=== PATIENT | male | born 1940 | race American Indian/Alaskan Native ===

== ENCOUNTER 2018-08-08 12:22 | Inpatient (IN) | payer MEDICARE ==
[2018-08-08] MEDS ORDERED: PROVENTIL IH PRN (12:30)
[2018-08-08] MEDS ORDERED: SODIUM CHLORIDE FLUSH SYRINGE 10 ML IV PRN (12:30)
[2018-08-08] MEDS ORDERED: ZOFRAN IV PRN (12:30)
[2018-08-08] MEDS ORDERED: MORPHINE IV PRN (12:30)
--- NOTE | 2018-08-08 12:33 | History and Physical Report ---
History of Present Illness Chief complaint: My doctor told me to come in History of present illness: 78 YO Male with BPH, HLD was seen and evaluated by his PCP, Dr. Curry, and was found to have painless jaundice. Pt admitted directly at the request of Patricio Chan. Pt seen and evaluated upon arrival to his room. Pt denies fever, chills, CP, palpitations, NVD, Unintentional weight loss, night sweats, howard pain, skin rash, productive cough, or recent ill contacts. Pt acknowledges darkening of his skin, as well as being told by his that his eyes were "turning yellow" over the past 2 months. Pt also acknowledges dark urine, as well as change in the color of his stool. No reported nursing events. Past History Past Medical History: hyperlipidemia, other (BPH) Past Surgical History: No surgical history, Other (reviewed) Social history: , lives with family Family history: no significant family history Medications and Allergies Allergies Allergy/AdvReac Type Severity Reaction Status Date / Time No Known Allergies Allergy Verified 08/08/18 12:55 Home Medications Medication Instructions Recorded Confirmed Last Taken Type Oxybutynin [Ditropan] 5 mg PO DAILY 10/05/13 08/08/18 Unknown History Pravastatin Sodium 40 mg PO BID 10/05/13 08/08/18 10/04/13 History Sildenafil Citrate [Viagra] 100 mg PO DAILY 10/05/13 08/08/18 Unknown History Timolol Maleate 1 each OU DAILY 10/05/13 08/08/18 10/05/13 History Travoprost [Travatan Z] 1 drops OU QHS 10/05/13 08/08/18 10/04/13 History Tamsulosin HCl [Flomax] 0.4 mg PO DAILY 08/08/18 08/08/18 Unknown History Active Meds: Active Medications Albuterol (Proventil) 2.5 mg IH Q4HRT PRN PRN Reason: Shortness Of Breath Morphine Sulfate (Morphine) 2 mg IV Q4H PRN PRN Reason: Pain, Moderate (4-6) Ondansetron HCl (Zofran) 4 mg IV Q8H PRN PRN Reason: Nausea And Vomiting Sodium Chloride (Sodium Chloride Flush Syringe 10 Ml) 10 ml IV BID DESTINEE Sodium Chloride (Sodium Chloride Flush Syringe 10 Ml) 10 ml IV PRN PRN PRN Reason: LINE FLUSH Review of Systems Constitutional: no weight loss, no weight gain, no fever, no chills Ears, nose, mouth and throat: no ear pain, no ear discharge, no tinnitis, no decreased hearing, no nose pain Cardiovascular: no chest pain, no orthopnea, no palpitations, no rapid/irregular heart beat, no edema Respiratory: no cough, no cough with sputum, no excessive sputum, no hemoptysis Gastrointestinal: no abdominal pain, no nausea, no vomiting, no constipation, no change in bowel habits Genitourinary Male: other (dark urine), no dysuria, no discharge, no urinary frequency, no urinary hesitancy Rectal: no pain, no incontinence, no bleeding Musculoskeletal: no neck stiffness, no neck pain, no shooting arm pain, no arm numbness/tingling, no low back pain, no leg numbness/tingling Integumentary: no rash, no pruritis, no redness, no sores Neurological: no transient paralysis, no paralysis, no weakness, no parathesias Psychiatric: no anxiety, no memory loss, no change in sleep habits, no sleep disturbances, no insomnia, no hypersomnia, no change in appetite Endocrine: no cold intolerance, no heat intolerance, no excessive thirst, no polydipsia, no polyuria, no nocturia, no weight change Hematologic/Lymphatic: no easy bruising, no easy bleeding Allergic/Immunologic: no allergic rhinitis, no wheezing, no persistent infections, no anaphylaxis Exam - Constitutional General appearance: Present: no acute distress - EENT Eyes: Present: scleral icterus ENT: hearing intact, clear oral mucosa - Neck Neck: Present: supple, normal ROM - Respiratory Respiratory effort: normal Respiratory: bilateral: CTA - Cardiovascular Heart Sounds: Present: S1 & S2. Absent: rub, click - Extremities Extremities: pulses symmetrical, No edema Peripheral Pulses: within normal limits - Abdominal General gastrointestinal: Present: soft, non-tender, non-distended, normal bowel sounds Male genitourinary: Present: normal - Integumentary Integumentary: Present: clear, warm, dry - Musculoskeletal Musculoskeletal: gait normal, strength equal bilaterally - Psychiatric Psychiatric: appropriate mood/affect, intact judgment & insight - Neurologic Neurologic: CNII-XII intact, moves all extremities Results - Labs CBC & Chem 7: 08/08/18 13:25 08/08/18 13:25 Assessment and Plan - Patient Problems (1) Hepatitis Current Visit: Yes Status: Acute Plan to address problem: Hepatitis panel, hold statin therapy, avoid hepatotoxic agents, LFT, CBC, CMP, CT Abdomen/Pelvis, Ultrasound liver, coagulation profile, GI consulted (2) Elevated LFTs Current Visit: Yes Status: Acute Plan to address problem: GI consulted, Liver ultrasound, (3) HLD (hyperlipidemia) Current Visit: Yes Status: Acute Qualifiers: Hyperlipidemia type: mixed hyperlipidemia Qualified Code(s): E78.2 - Mixed hyperlipidemia Plan to address problem: Hold statin therapy, low cholesterol diet (4) DVT prophylaxis Current Visit: Yes Status: Acute Plan to address problem: SCD to BLE while in bed
[2018-08-08 13:39] LABS: Mean Corpuscular HGB Conc 35 % (32-34); Mean Corpuscular Volume 92 fl (84-94); Platelet Count 281 K/mm3 (140-440); Red Blood Count 4.01 M/mm3 (3.65-5.03); Red Cell Distribution Width 16.5 % (13.2-15.2)
[2018-08-08 13:54] LABS: INR 1.09 (0.87-1.13)
[2018-08-08 14:05] LABS: Alanine Aminotransferase 186 units/L (7-56); Albumin 3.2 g/dL (3.9-5); BUN/Creatinine Ratio 25; Blood Urea Nitrogen 15 mg/dL (9-20); Calcium 9.4 mg/dL (8.4-10.2); Hemolysis Index 5; LDL Cholesterol,Direct 65 mg/dL (50-130)
[2018-08-08 14:49] LABS: Chol/HDL Ratio 24.42 %; HDL Cholesterol 14 mg/dL (40-59)
[2018-08-08 15:46] LABS: Basophils % (Manual) 0 % (0.0-1.8); Total Cells Counted 100
[2018-08-08 15:48] LABS: Anisocytosis 1+; Target Cells 2+
[2018-08-08] MEDS: LATANOPROST 0.005% OU SCH (18:00)
[2018-08-08 18:04] LABS: Hepatitis B Surface Antigen Non-Reactive (Negative); Hepatitis C Virus Antibody Non-Reactive (NonReactive)
[2018-08-08 18:23] LABS: Bilirubin,Direct 17.6 mg/dL (0-0.2)
--- NOTE | 2018-08-08 18:45 | Cat Scan Report ---
PROCEDURE: CT ABDOMEN PELVIS W CON TECHNIQUE: Computerized axial tomography of the abdomen and pelvis was performed after the IV inject ion of iodinated nonionic contrast. HISTORY: ab pain COMPARISONS: None . FINDINGS: Lower Lung garcia: Minimal dependent atelectasis. Lung bases otherwise are clear. Upper Abdomen: There are multiple low-density nodules scattered throughout the right and left lobes of the liver measuring up to 4.4 cm consistent with multiple hepatic cysts. The gallbladder is disten ded. The intrahepatic ducts are significantly distended, left lobe more than the right lobe. Follow-u p biliary ultrasound recommended. The adrenal glands, the pancreas and spleen are unremarkable. Kidneys, Ureters and Urinary bladder: No abnormalities are seen. Retroperitoneum: Atherosclerotic changes are seen in the abdominal aorta. No evidence of abdominal a ortic aneurysm. The ascending thoracic aorta is partially visualized on this exam and appears mildly dilated measuring 4.6 x 4.4 cm, aneurysmal dilatation. No dissection is seen. The entire thoracic aor ta is not included on this exam. Nonspecific subcentimeter lymph nodes are seen in the retroperitoneum. No pathologically enlarged ly mph nodes are identified. Bowel: Mild diverticulosis seen left-sided colon without evidence of diverticulitis. Normal-appearin g appendix visualized right lower quadrant. There is mild wall thickening seen right side of the colo n as well as decreased density in the submucosal layer. This could be related to body habitus and t. I cannot exclude a nonspecific colitis on the right. Minimal left inguinal hernia containing adipo se tissue visualized. No herniated loops of bowel are seen. Reproductive organs: There is nonspecific diffuse prostate enlargement. Other: No acute bone abnormalities are seen IMPRESSION: There is dilatation of the gallbladder as well as the intrahepatic ducts as described. Biliary ultras ound is recommended for further evaluation. Multiple hepatic cysts are also suspected. Mild wall prominence right side of the colon as well as mild prominence of the submucosal layer as de scribed. This could be an artifact and body habitus and diet. I cannot exclude a nonspecific colitis on the right. Minimal diverticulosis left side of the colon. Mild aneurysmal dilatation ascending thoracic aorta partially visualized as described. Nonspecific diffuse prostate enlargement. This document is electronically signed by Mateusz Dietrich MD., August 08 2018 06:43:36 PM ET
[2018-08-08] MEDS ORDERED: TRAVOPROST OU SCH (22:00)
[2018-08-08] MEDS: SODIUM CHLORIDE FLUSH SYRINGE 10 ML IV SCH (23:29)
--- NOTE | 2018-08-09 07:53 | Progress Note ---
Assessment and Plan Assessment and plan: 78-year-old man with a history of hyperlipidemia, BPH, thyroid nodules who presents to the hospital with painless jaundice. He was directly admitted at the request of Dr Curry. 2013; patient had FNA of thyroid nodules, which yielded focal cells. Labs at time of admission reveal total bilirubin of 27, direct bilirubin of 17, mildly elevated AST and ALT, alkaline phosphatase of 831. Coags are normal, hepatitis serologies negative X CT abdomen and pelvis; there is dilatation of the gallbladder as well as entire hepatic ducts, multiple hepatic cysts are suspected mild wall prominence along the right side of the colon as well as mild prominence of submucosal layer is described Diagnoses Jaundice Transaminitis Hyperlipidemia BPH. Plan Suspect malignancy, obtain abdominal ultrasound. GI consult appreciated, patient is going for ERCP today Resume home medications DVT prophylaxis is Lovenox History Interval history: Continues to have jaundice of skin and eyes Review of systems Constitutional: No fevers, no malaise, no joint pains CVS: No chest pain, no orthopnea, no dyspnea on exertion, no pedal edema GI: No abdominal pain, no diarrhea, no vomiting, no constipation Respiratory: No shortness of breath, no wheezing, no coughing Hospitalist Physical - Physical exam Narrative exam: General. no distress, nontoxic HEENT: Scleral icterus, Moist mucous membranes, extraocular muscles intact, no lymphadenopathy Neck: supple Cardiac: S1-S2 heard Lungs: clear to auscultation bilaterally Abdomen: soft , nontender, nondistended, bowel sounds positive Extremities: no edema clubbing or cyanosis Skin: no rash or lesions, skin is jaundiced Neurologic: no gross focal deficits Psych: calm, and cooperative - Constitutional Vitals: Temp Pulse Resp BP Pulse Ox 99.0 F 66 16 130/71 97 08/09/18 01:40 08/09/18 01:40 08/09/18 01:40 08/09/18 01:40 08/09/18 01:40 General appearance: Present: no acute distress Results - Labs CBC & Chem 7: 08/08/18 13:25 08/08/18 13:25 Labs: Laboratory Last Values WBC 4.9 K/mm3 (4.5-11.0) 08/08/18 13:25 RBC 4.01 M/mm3 (3.65-5.03) 08/08/18 13:25 Hgb 13.0 gm/dl (11.8-15.2) 08/08/18 13:25 Hct 37.0 % (35.5-45.6) 08/08/18 13:25 MCV 92 fl (84-94) 08/08/18 13:25 MCH 33 pg (28-32) H 08/08/18 13:25 MCHC 35 % (32-34) H 08/08/18 13:25 RDW 16.5 % (13.2-15.2) H 08/08/18 13:25 Plt Count 281 K/mm3 (140-440) 08/08/18 13:25 Add Manual Diff Complete 08/08/18 13:25 Total Counted 100 08/08/18 13:25 Seg Neuts % (Manual) 62.0 % (40.0-70.0) 08/08/18 13:25 Band Neutrophils % 0 % 08/08/18 13:25 Lymphocytes % (Manual) 26.0 % (13.4-35.0) 08/08/18 13:25 Reactive Lymphs % (Man) 0 % 08/08/18 13:25 Monocytes % (Manual) 9.0 % (0.0-7.3) H 08/08/18 13:25 Eosinophils % (Manual) 3.0 % (0.0-4.3) 08/08/18 13:25 Basophils % (Manual) 0 % (0.0-1.8) 08/08/18 13:25 Metamyelocytes % 0 % 08/08/18 13:25 Myelocytes % 0 % 08/08/18 13:25 Promyelocytes % 0 % 08/08/18 13:25 Blast Cells % 0 % 08/08/18 13:25 Nucleated RBC % Not Reportable 08/08/18 13:25 Seg Neutrophils # Man 3.0 K/mm3 (1.8-7.7) 08/08/18 13:25 Band Neutrophils # 0.0 K/mm3 08/08/18 13:25 Lymphocytes # (Manual) 1.3 K/mm3 (1.2-5.4) 08/08/18 13:25 Abs React Lymphs (Man) 0.0 K/mm3 08/08/18 13:25 Monocytes # (Manual) 0.4 K/mm3 (0.0-0.8) 08/08/18 13:25 Eosinophils # (Manual) 0.1 K/mm3 (0.0-0.4) 08/08/18 13:25 Basophils # (Manual) 0.0 K/mm3 (0.0-0.1) 08/08/18 13:25 Metamyelocytes # 0.0 K/mm3 08/08/18 13:25 Myelocytes # 0.0 K/mm3 08/08/18 13:25 Promyelocytes # 0.0 K/mm3 08/08/18 13:25 Blast Cells # 0.0 K/mm3 08/08/18 13:25 WBC Morphology Not Reportable 08/08/18 13:25 Hypersegmented Neuts Not Reportable 08/08/18 13:25 Hyposegmented Neuts Not Reportable 08/08/18 13:25 Hypogranular Neuts Not Reportable 08/08/18 13:25 Smudge Cells Not Reportable 08/08/18 13:25 Toxic Granulation Not Reportable 08/08/18 13:25 Toxic Vacuolation Not Reportable 08/08/18 13:25 Dohle Bodies Not Reportable 08/08/18 13:25 Pelger-Huet Anomaly Not Reportable 08/08/18 13:25 Katelyn Rods Not Reportable 08/08/18 13:25 Platelet Estimate Appears normal 08/08/18 13:25 Clumped Platelets Not Reportable 08/08/18 13:25 Plt Clumps, EDTA Not Reportable 08/08/18 13:25 Large Platelets Not Reportable 08/08/18 13:25 Giant Platelets Not Reportable 08/08/18 13:25 Platelet Satelliting Not Reportable 08/08/18 13:25 Plt Morphology Comment Not Reportable 08/08/18 13:25 RBC Morphology Not Reportable 08/08/18 13:25 Dimorphic RBCs Not Reportable 08/08/18 13:25 Polychromasia Not Reportable 08/08/18 13:25 Hypochromasia Not Reportable 08/08/18 13:25 Poikilocytosis Not Reportable 08/08/18 13:25 Anisocytosis 1+ 08/08/18 13:25 Microcytosis Not Reportable 08/08/18 13:25 Macrocytosis Not Reportable 08/08/18 13:25 Spherocytes Not Reportable 08/08/18 13:25 Pappenheimer Bodies Not Reportable 08/08/18 13:25 Sickle Cells Not Reportable 08/08/18 13:25 Target Cells 2+ 08/08/18 13:25 Tear Drop Cells Not Reportable 08/08/18 13:25 Ovalocytes Not Reportable 08/08/18 13:25 Helmet Cells Not Reportable 08/08/18 13:25 Muniz-Cleora Bodies Not Reportable 08/08/18 13:25 Paint Bank Rings Not Reportable 08/08/18 13:25 Daria Cells Not Reportable 08/08/18 13:25 Bite Cells Not Reportable 08/08/18 13:25 Crenated Cell Not Reportable 08/08/18 13:25 Elliptocytes Not Reportable 08/08/18 13:25 Acanthocytes (Spur) Not Reportable 08/08/18 13:25 Rouleaux Not Reportable 08/08/18 13:25 Hemoglobin C Crystals Not Reportable 08/08/18 13:25 Schistocytes Not Reportable 08/08/18 13:25 Malaria parasites Not Reportable 08/08/18 13:25 Josef Bodies Not Reportable 08/08/18 13:25 Hem Pathologist Commnt No 08/08/18 13:25 PT 14.8 Sec. (12.2-14.9) 08/08/18 13:25 INR 1.09 (0.87-1.13) 08/08/18 13:25 Sodium 140 mmol/L (137-145) 08/08/18 13:25 Potassium 3.6 mmol/L (3.6-5.0) 08/08/18 13:25 Chloride 101.5 mmol/L (98-107) 08/08/18 13:25 Carbon Dioxide 24 mmol/L (22-30) 08/08/18 13:25 Anion Gap 18 mmol/L 08/08/18 13:25 BUN 15 mg/dL (9-20) 08/08/18 13:25 Creatinine 0.6 mg/dL (0.8-1.5) L 08/08/18 13:25 Estimated GFR > 60 ml/min 08/08/18 13:25 BUN/Creatinine Ratio 25 % 08/08/18 13:25 Glucose 95 mg/dL (75-100) 08/08/18 13:25 Calcium 9.4 mg/dL (8.4-10.2) 08/08/18 13:25 Total Bilirubin 27.60 mg/dL (0.1-1.2) H 08/08/18 16:35 Direct Bilirubin 17.6 mg/dL (0-0.2) H 08/08/18 16:35 Indirect Bilirubin 10.0 mg/dL 08/08/18 16:35 AST 161 units/L (5-40) H 08/08/18 13:25 ALT 186 units/L (7-56) H 08/08/18 13:25 Alkaline Phosphatase 831 units/L (35-129) H 08/08/18 13:25 Total Protein 6.8 g/dL (6.3-8.2) 08/08/18 13:25 Albumin 3.2 g/dL (3.9-5) L 08/08/18 13:25 Albumin/Globulin Ratio 0.9 % 08/08/18 13:25 Triglycerides 257 mg/dL (2-149) H 08/08/18 13:25 Cholesterol 342 mg/dL (50-199) H 08/08/18 13:25 LDL Cholesterol Direct 65 mg/dL (50-130) 08/08/18 13:25 HDL Cholesterol 14 mg/dL (40-59) L 08/08/18 13:25 Cholesterol/HDL Ratio 24.42 % 08/08/18 13:25 Lipase 40 units/L (13-60) 08/08/18 16:35 Hepatitis A IgM Ab Non-reactive (NonReactive) 08/08/18 16:35 Hep Bs Antigen Non-reactive (Negative) 08/08/18 16:35 Hep B Core IgM Ab Non-reactive (NonReactive) 08/08/18 16:35 Hepatitis C Antibody Non-reactive (NonReactive) 08/08/18 16:35 Active Medications - Current Medications Current Medications: Generic Name Dose Route Start Last Admin Trade Name Freq PRN Reason Stop Dose Admin Albuterol 2.5 mg 08/08/18 12:30 Proventil IH Q4HRT PRN Shortness Of Breath Latanoprost 1 drops 08/08/18 18:00 Latanoprost 0.005% OU QPM DESTINEE Morphine Sulfate 2 mg 08/08/18 12:30 Morphine IV Q4H PRN Pain, Moderate (4-6) Ondansetron HCl 4 mg 08/08/18 12:30 Zofran IV Q8H PRN Nausea And Vomiting Oxybutynin Chloride 5 mg 08/09/18 10:00 Ditropan PO DAILY DESTINEE Sodium Chloride 10 ml 08/08/18 22:00 08/08/18 23:29 Sodium Chloride Flush Syringe 10 Ml IV 10 ml BID DESTINEE Administration Sodium Chloride 10 ml 08/08/18 12:30 Sodium Chloride Flush Syringe 10 Ml IV PRN PRN LINE FLUSH Timolol Maleate 1 drops 08/09/18 10:00 Timoptic OU DAILY DESTINEE
[2018-08-09] MEDS: TIMOPTIC OU SCH (09:20)
[2018-08-09] MEDS: SODIUM CHLORIDE FLUSH SYRINGE 10 ML IV SCH ×2 (09:22→22:45)
[2018-08-09] MEDS: DITROPAN PO SCH (09:22)
[2018-08-09] MEDS: FLOMAX PO SCH (09:22)
--- NOTE | 2018-08-09 09:49 | Gastroenterology Consultation ---
History of Present Illness - Reason for Consult Consult date: 08/09/18 Jaundice Requesting physician: TOM ELLIOTT - History of Present Illness The patient is a 78 yo male with no past GI history. He was admitted with 2-3 week onset painless jaundice. A CT scan showed significant ductal dilation, but no obvious mass in the HOP (nor pancreatic ductal dilation). His INR and platelets were normal, and he has no hx of liver disease or EtOH abuse; his acute hepatitis panel was negative. He has lost about 20 pounds in the past 6 months, though he says this was intentional. He has had itching the last 3-4 weeks. He denies a family hx of cancer other than prostate (dad), and he is not a smoker/former smoker. He has not started any new medications nor taken herbal supplements. He has had no abdominal pain or emesis. A colonoscopy showed small polyps 3 years ago (Samir) but he has never had an EGD. Past History Past Medical History: hyperlipidemia, other (BPH) Past Surgical History: No surgical history Social history: , lives with family. denies: smoking, alcohol abuse Family history: cancer (Prostate (Dad)) Medications and Allergies Allergies Allergy/AdvReac Type Severity Reaction Status Date / Time No Known Allergies Allergy Verified 08/08/18 12:55 Home Medications Medication Instructions Recorded Confirmed Last Taken Type Oxybutynin [Ditropan] 5 mg PO DAILY 10/05/13 08/08/18 Unknown History Pravastatin Sodium 40 mg PO BID 10/05/13 08/08/18 10/04/13 History Sildenafil Citrate [Viagra] 100 mg PO DAILY 10/05/13 08/08/18 Unknown History Timolol Maleate 1 each OU DAILY 10/05/13 08/08/18 10/05/13 History Travoprost [Travatan Z] 1 drops OU QHS 10/05/13 08/08/18 10/04/13 History Tamsulosin HCl [Flomax] 0.4 mg PO DAILY 08/08/18 08/08/18 Unknown History Active Meds: Active Medications Albuterol (Proventil) 2.5 mg IH Q4HRT PRN PRN Reason: Shortness Of Breath Enoxaparin Sodium (Lovenox) 40 mg SUB-Q QDAY@2200 [facility] Latanoprost (Latanoprost 0.005%) 1 drops OU QPM [facility] Morphine Sulfate (Morphine) 2 mg IV Q4H PRN PRN Reason: Pain, Moderate (4-6) Ondansetron HCl (Zofran) 4 mg IV Q8H PRN PRN Reason: Nausea And Vomiting Oxybutynin Chloride (Ditropan) 5 mg PO DAILY [facility] Last Admin: 08/09/18 09:22 Dose: 5 mg Documented by: Sodium Chloride (Sodium Chloride Flush Syringe 10 Ml) 10 ml IV BID [facility] Last Admin: 08/09/18 09:22 Dose: 10 ml Documented by: Sodium Chloride (Sodium Chloride Flush Syringe 10 Ml) 10 ml IV PRN PRN PRN Reason: LINE FLUSH Tamsulosin HCl (Flomax) 0.4 mg PO DAILY [facility] Last Admin: 08/09/18 09:22 Dose: 0.4 mg Documented by: Timolol Maleate (Timoptic) 1 drops OU DAILY [facility] Last Admin: 08/09/18 09:20 Dose: 1 drops Documented by: I HAVE REVIEWED AND RECONCILED MEDICATIONS Review of Systems - Review of Systems All systems: negative (as noted in the HPI) Exam - Constitutional Vital Signs: Temp Pulse Resp BP Pulse Ox 98.6 F 58 L 18 127/70 99 08/09/18 07:37 08/09/18 07:37 08/09/18 07:37 08/09/18 07:37 08/09/18 07:58 General appearance: no acute distress - EENT Eyes: PERRL, EOM intact, scleral icterus ENT: hearing intact, clear oral mucosa, no thrush - Neck Neck: supple, normal ROM - Respiratory Respiratory effort: normal Respiratory: bilateral: CTA - Cardiovascular Rhythm: regular Heart Sounds: Present: S1 & S2 Extremities: no ischemia, No edema - Gastrointestinal General gastrointestinal: Present: soft, non-tender, non-distended - Integumentary Integumentary: Present: clear, warm, dry - Neurologic Neurological: alert and oriented x3 - Labs CBC & Chem 7: 08/08/18 13:25 08/08/18 13:25 Lab Results: Laboratory Results - last 24 hr 08/08/18 08/08/18 08/08/18 13:25 13:25 13:25 WBC 4.9 RBC 4.01 Hgb 13.0 Hct 37.0 MCV 92 MCH 33 H MCHC 35 H RDW 16.5 H Plt Count 281 Add Manual Diff Complete Total Counted 100 Seg Neuts % (Manual) 62.0 Band Neutrophils % 0 Lymphocytes % (Manual) 26.0 Reactive Lymphs % (Man) 0 Monocytes % (Manual) 9.0 H Eosinophils % (Manual) 3.0 Basophils % (Manual) 0 Metamyelocytes % 0 Myelocytes % 0 Promyelocytes % 0 Blast Cells % 0 Nucleated RBC % Not Reportable Seg Neutrophils # Man 3.0 Band Neutrophils # 0.0 Lymphocytes # (Manual) 1.3 Abs React Lymphs (Man) 0.0 Monocytes # (Manual) 0.4 Eosinophils # (Manual) 0.1 Basophils # (Manual) 0.0 Metamyelocytes # 0.0 Myelocytes # 0.0 Promyelocytes # 0.0 Blast Cells # 0.0 WBC Morphology Not Reportable Hypersegmented Neuts Not Reportable Hyposegmented Neuts Not Reportable Hypogranular Neuts Not Reportable Smudge Cells Not Reportable Toxic Granulation Not Reportable Toxic Vacuolation Not Reportable Dohle Bodies Not Reportable Pelger-Huet Anomaly Not Reportable Katelyn Rods Not Reportable Platelet Estimate Appears normal Clumped Platelets Not Reportable Plt Clumps, EDTA Not Reportable Large Platelets Not Reportable Giant Platelets Not Reportable Platelet Satelliting Not Reportable Plt Morphology Comment Not Reportable RBC Morphology Not Reportable Dimorphic RBCs Not Reportable Polychromasia Not Reportable Hypochromasia Not Reportable Poikilocytosis Not Reportable Anisocytosis 1+ Microcytosis Not Reportable Macrocytosis Not Reportable Spherocytes Not Reportable Pappenheimer Bodies Not Reportable Sickle Cells Not Reportable Target Cells 2+ Tear Drop Cells Not Reportable Ovalocytes Not Reportable Helmet Cells Not Reportable Muniz-[place]enton Bodies Not Reportable [place] Rings Not Reportable Daria Cells Not Reportable Bite Cells Not Reportable Crenated Cell Not Reportable Elliptocytes Not Reportable Acanthocytes (Spur) Not Reportable Rouleaux Not Reportable Hemoglobin C Crystals Not Reportable Schistocytes Not Reportable Malaria parasites Not Reportable Josef Bodies Not Reportable Hem Pathologist Commnt No PT 14.8 INR 1.09 Sodium 140 Potassium 3.6 Chloride 101.5 Carbon Dioxide 24 Anion Gap 18 BUN 15 Creatinine 0.6 L Estimated GFR > 60 BUN/Creatinine Ratio 25 Glucose 95 Calcium 9.4 Total Bilirubin 28.80 H Direct Bilirubin Indirect Bilirubin AST 161 H ALT 186 H Alkaline Phosphatase 831 H Total Protein 6.8 Albumin 3.2 L Albumin/Globulin Ratio 0.9 Triglycerides 257 H Cholesterol 342 H LDL Cholesterol Direct 65 HDL Cholesterol 14 L Cholesterol/HDL Ratio 24.42 Lipase Hepatitis A IgM Ab Hep Bs Antigen Hep B Core IgM Ab Hepatitis C Antibody 08/08/18 08/08/18 08/08/18 16:35 16:35 16:35 WBC RBC Hgb Hct MCV MCH MCHC RDW Plt Count Add Manual Diff Total Counted Seg Neuts % (Manual) Band Neutrophils % Lymphocytes % (Manual) Reactive Lymphs % (Man) Monocytes % (Manual) Eosinophils % (Manual) Basophils % (Manual) Metamyelocytes % Myelocytes % Promyelocytes % Blast Cells % Nucleated RBC % Seg Neutrophils # Man Band Neutrophils # Lymphocytes # (Manual) Abs React Lymphs (Man) Monocytes # (Manual) Eosinophils # (Manual) Basophils # (Manual) Metamyelocytes # Myelocytes # Promyelocytes # Blast Cells # WBC Morphology Hypersegmented Neuts Hyposegmented Neuts Hypogranular Neuts Smudge Cells Toxic Granulation Toxic Vacuolation Dohle Bodies Pelger-Huet Anomaly Katelyn Rods Platelet Estimate Clumped Platelets Plt Clumps, EDTA Large Platelets Giant Platelets Platelet Satelliting Plt Morphology Comment RBC Morphology Dimorphic RBCs Polychromasia Hypochromasia Poikilocytosis Anisocytosis Microcytosis Macrocytosis Spherocytes Pappenheimer Bodies Sickle Cells Target Cells Tear Drop Cells Ovalocytes Helmet Cells Muniz-Penton Bodies [place] Rings [place] Cells Bite Cells Crenated Cell Elliptocytes Acanthocytes (Spur) Rouleaux Hemoglobin C Crystals Schistocytes Malaria parasites Josef Bodies Hem Pathologist Commnt PT INR Sodium Potassium Chloride Carbon Dioxide Anion Gap BUN Creatinine Estimated GFR BUN/Creatinine Ratio Glucose Calcium Total Bilirubin 27.60 H Direct Bilirubin 17.6 H Indirect Bilirubin 10.0 AST ALT Alkaline Phosphatase Total Protein Albumin Albumin/Globulin Ratio Triglycerides Cholesterol LDL Cholesterol Direct HDL Cholesterol Cholesterol/HDL Ratio Lipase 40 Hepatitis A IgM Ab Non-reactive Hep Bs Antigen Non-reactive Hep B Core IgM Ab Non-reactive Hepatitis C Antibody Non-reactive Assessment and Plan - Patient Problems (1) Jaundice Current Visit: Yes Status: Acute Plan to address problem: - Given painless jaundice and markedly dilated ducts, along with patient age, very high likelihood of cancer (versus infx, autoimmune, or stone-related cause). - I doubt medication related since no acute change in meds (but will decrease pravastatin to QD from BID). - Will cancel MRI and proceed directly to ERCP with brushing/stent; if no significant finding, I think the next logical step would be EUS given abrupt duct change in size at level of HOP. - Will keep NPO and plan ERCP later today pending OR availability. (2) Abnormal computerized tomography of biliary tract Current Visit: Yes Status: Acute
[2018-08-09] MEDS ORDERED: PRAVACHOL PO SCH (10:00)
--- NOTE | 2018-08-09 16:06 | Anesthesia Consultation ---
Anesthesia Consult and Med Hx Date of service: 08/09/18 - Airway Anesthetic Teeth Evaluation: Good ROM Head & Neck: Adequate Mental/Hyoid Distance: Adequate Mallampati Class: Class III Intubation Access Assessment: Possibly Difficult - Pulmonary Exam CTA: Yes - Cardiac Exam Cardiac Exam: RRR - Pre-Operative Health Status ASA Pre-Surgery Classification: ASA2 Proposed Anesthetic Plan: MAC - Pulmonary Hx Smoking: No - Cardiovascular System Hx Hypertension: No Hx Heart Attack/AMI: No Hx Percutaneous Transluminal Coronary Angioplasty (PTCA): No Hx Cardia Arrhythmia: No - Central Nervous System Hx Seizures: No CVA: No Hx Psychiatric Problems: No - Gastrointestinal Hx Gastroesophageal Reflux Disease: No - Endocrine Hx Renal Disease: No Hx Liver Disease: Yes (transaminitis, painless jaundice on admission) Hx Insulin Dependent Diabetes: No Hx Non-Insulin Dependent Diabetes: No Hx Thyroid Disease: No - Hematic Hx Anemia: No - Other Systems Hx Obesity: No - Additional Comments Anesthesia Medical History Comments: No hx anesthetic complications.
[2018-08-09] MEDS ORDERED: WATER FOR IRRIG STERILE IR ONE (16:13)
[2018-08-09] MEDS ORDERED: NACL 0.9% 1000 ML 1,000 ML ONE (16:14)
[2018-08-09] MEDS ORDERED: XYLOCAINE MPF 2% ONE (16:44)
[2018-08-09] MEDS ORDERED: VERSED ONE (16:44)
[2018-08-09] MEDS ORDERED: DIPRIVAN 10 MG/ML IV ONE ×3 (16:45→18:10)
[2018-08-09] MEDS ORDERED: NACL 0.9% 100 ML ONE (17:05)
[2018-08-09] MEDS ORDERED: GLUCAGEN ONE (17:05)
[2018-08-09] MEDS ORDERED: GLUCAGEN IV ONE (17:55)
[2018-08-09] MEDS: LATANOPROST 0.005% OU SCH (18:00)
--- NOTE | 2018-08-09 18:50 | Post Operative Note ---
Pre-op diagnosis: Biliary Obstruction Post-op diagnosis: same Findings: 1. Normal Ampulla 2. PD cannulated with 0.025guidewire; appeared normal - precut sphincterotomy made 3. Unable to cannulate CBD, and minimal bile seen in duodenum Procedure: ERCP with sphincterotomy Anesthesia: MAC Surgeon: COLTEN OATES Estimated blood loss: minimal Pathology: none Specimen disposition: other (N/A) Condition: stable Disposition: floor (Recs: 1. Will discuss with biliary surgery at [facility]; given large hepatic cysts (in L lobe) that may communicate with ducts, and dilation to pancreas head, both CA and choledochoceles are in differential. I still favor CA as most likely. Ampullary stenosis/autoimmune would be even less likely. Patient will need PTC with improved imaging, and possible surgical management.)
--- NOTE | 2018-08-09 18:56 | Anesthesia Day of Surgery ---
Anesthesia Day of Surgery - Day of Surgery Patient Examined: Yes Patient H&P Reviewed: Yes Patient is NPO: Yes
--- NOTE | 2018-08-09 19:24 | Operative Report ---
PROCEDURE PERFORMED: Endoscopic retrograde cholangiopancreatography. PREOPERATIVE DIAGNOSIS: Biliary obstruction. POSTOPERATIVE DIAGNOSIS: Biliary obstruction. ENDOSCOPIST: Jeremy Solares MD INSTRUMENT: [place] video endoscope. MEDICATIONS: MAC anesthesia by Anesthesia Services. COMPLICATIONS: No apparent complications. ESTIMATED BLOOD LOSS: Minimal. SPECIMENS: None. IMPLANTS: None. ASSISTANTS: None. CONDITION AT COMPLETION: Stable. TECHNIQUE: The patient was informed of the risks and benefits of the procedure. He signed the informed consent to proceed. He was placed in the left lateral decubitus position. The above sedative medications were given. His vital signs remained stable throughout the procedure. The instrument was advanced from the mouth to the second portion of the duodenum under direct visualization. At that point, the ampulla was visualized, it was normal in shape and size. The pancreatic duct was cannulated with relative ease using a 0.035 guidewire despite repositioning, we were unable to cannulate the common bile duct. A precut sphincterotomy was made of a medium size. We then used a 0.025 and a 0.035 guidewire to attempt cannulation without success. It should be noted there was minimal bile seen in the duodenum, indicative of probable high-grade stricture. At that point, the procedure was terminated. FINDINGS: 1. Normal appearing ampulla. 2. The pancreatic duct was cannulated using a 0.035 and 0.025 guidewire; it appeared normal on injection of contrast. Subsequently, a precut sphincterotomy was made. 3. We were unable to cannulate the common bile duct and there was minimal bile in the duodenum, indicative of likely high-grade obstruction. RECOMMENDATIONS: 1. I will discuss the case with biliary surgery at [facility]. Given his large hepatic cyst in the left lobe that may communicate with the ducts and dilation of the common bile duct of the pancreatic head, both cancer as well as choledochocele or atypical choledochocele would be in the differential. I still favor cancer is most likely diagnosis, but ampullary stenosis and autoimmune disease would be possible, but less likely. 2. The patient will need a percutaneous transhepatic cholangiogram with bile duct brushing and improved imaging, and possible surgical management. JOB# [id number] E/NTS
--- NOTE | 2018-08-09 19:26 | Post Anesthesia Evaluation ---
- Post Anesthesia Evaluation Patient Participated: Yes Airway Patent: Yes Stable Respiratory Function: Yes Nausea/Vomiting: No Temp > 96.8F: Yes Pain Manageable: Yes Adequeate Hydration: Yes Anesthesia Complications: No Other Comments: While in recovery, patient developed irreugular rhythm with apparent RBBB on telemetry. 12-lead EKG shows sinus rhythm with multiforme QRS complexes. Patient otherwise asymptomatic and HD stable with BP at baseline. Will transfer back to floor at this time. Findings discussed with covering hospitalist who will order additional lab studies.
[2018-08-09] MEDS: LEVAQUIN 750MG/150ML 750 MG/150 ML BAG IV SCH (21:08)
[2018-08-09] MEDS ORDERED: LOVENOX SUB-Q SCH (22:00)
[2018-08-10] MEDS: LEVAQUIN 750MG/150ML 750 MG/150 ML BAG IV SCH (09:19)
[2018-08-10] MEDS: FLOMAX PO SCH (09:22)
[2018-08-10] MEDS: DITROPAN PO SCH (09:22)
[2018-08-10] MEDS: SODIUM CHLORIDE FLUSH SYRINGE 10 ML IV SCH (09:24)
[2018-08-10] MEDS: TIMOPTIC OU SCH (09:24)
--- NOTE | 2018-08-10 09:35 | Discharge Summary ---
Providers - Providers Date of Admission: 08/08/18 12:57 Attending physician: TOM ELLIOTT MD 08/08/18 15:16 Consult to Physician [CONS] Routine Comment: NIKKI Consulting Provider: DIEGO WOODSON Physician Instructions: CONSULT WAS CALLED TO /TONY Reason For Exam: liver failure Primary care physician: SRIRAM ROBLEDO Hospitalization Hospital course: 78-year-old man with a history of hyperlipidemia, BPH, thyroid nodules who presents to the hospital with painless jaundice. He was directly admitted at the request of Dr Robledo. 2013; patient had FNA of thyroid nodules, which yielded focal cells. Labs at time of admission reveal total bilirubin of 27, direct bilirubin of 17, mildly elevated AST and ALT, alkaline phosphatase of 831. Coags are normal, h epatitis serologies negative X CT abdomen and pelvis; there is dilatation of the gallbladder as well as entire hepatic ducts, multiple hepatic cysts are suspected mild wall prominence along the right side of the colon as well as mild prominence of submucosal layer is described Diagnoses Jaundice Transaminitis Hyperlipidemia BPH. Plan Suspect malignancy sp ERCP, on 08/09, Unable to cannulate CBD, and minimal bile seen in duodenum, is being transferred to [facility] for PTC continued his home medications DVT prophylaxis is Lovenox Disposition: [id number]/TX-[id number] SHRT-TRM GEN HOSP IP Time spent for discharge: 33 mins Core Measure Documentation - Palliative Care Palliative Care/ Comfort Measures: Not Applicable - Core Measures Any of the following diagnoses?: none Exam - Constitutional Vitals: Temp Pulse Resp BP Pulse Ox 98.1 F 70 18 133/81 100 08/10/18 02:27 08/10/18 02:27 08/10/18 02:27 08/10/18 02:27 08/10/18 02:27 General appearance: Present: no acute distress, well-nourished - EENT Eyes: Present: PERRL, scleral icterus ENT: hearing intact, clear oral mucosa - Neck Neck: Present: supple, normal ROM - Respiratory Respiratory effort: normal Respiratory: bilateral: CTA - Cardiovascular Heart Sounds: Present: S1 & S2. Absent: rub, click - Extremities Extremities: pulses symmetrical, No edema Peripheral Pulses: within normal limits - Abdominal General gastrointestinal: Present: soft, non-tender, non-distended, normal bowel sounds Male genitourinary: Present: normal - Integumentary Integumentary: Present: clear, warm, dry - Musculoskeletal Musculoskeletal: gait normal, strength equal bilaterally - Psychiatric Psychiatric: appropriate mood/affect, intact judgment & insight - Neurologic Neurologic: CNII-XII intact, moves all extremities Plan Follow up with: SRIRAM ROBLEDO MD [Primary Care Provider] - 7 Days
[2018-08-10] MEDS ORDERED: PRAVACHOL PO SCH (10:00)
[2018-08-10 13:48] VITALS: BP 141/77
--- NOTE | 2018-08-10 15:20 | Gastroenterology Progress Note ---
Assessment and Plan - Patient Problems (1) Jaundice Current Visit: Yes Status: Acute Plan to address problem: - Given painless jaundice and markedly dilated ducts, along with patient age, very high likelihood of cancer (versus infx, autoimmune, or stone-related cause). - I doubt medication related since no acute change in meds (but have decreased pravastatin to QD from BID). - I have arranged transfer to Pancreaticobiliary service at [facility]. I think (given unsuccessful ERCP yesterday) he will need a PTC for diagnosis, then (I hope) a [facility] if no evidence of metastatic disease seen (still suspect a pancreatic head mass vs cholangioCA as primary dx). (2) Abnormal computerized tomography of biliary tract Current Visit: Yes Status: Acute Subjective Date of service: 08/10/18 Principal diagnosis: Obstructive Jaundice Interval history: The patient had no complications after his ERCP yesterday. He has no N/V/abdominal pain. He is tolerating his current diet. Objective - Constitutional Vitals: Temp Pulse Resp BP Pulse Ox 98.0 F 59 L 18 141/77 100 08/10/18 13:11 08/10/18 13:11 08/10/18 13:11 08/10/18 13:11 08/10/18 13:11 General appearance: no acute distress - EENT Eyes: PERRL, scleral icterus ENT: hearing intact, clear oral mucosa - Respiratory Respiratory effort: normal Respiratory: bilateral: CTA - Cardiovascular Rhythm: regular Heart Sounds: Present: S1 & S2 - Gastrointestinal General gastrointestinal: Present: soft, non-tender, non-distended - Labs CBC & Chem 7: 08/08/18 13:25 08/08/18 13:25
--- NOTE | 2018-08-11 08:06 | Fluoroscopy Report ---
FLUOROSCOPY ERCP BILIARY DUCT History: Jaundice. Findings: Fluoroscopy was provided by radiology during ERCP by gastroenterology. 5 fluoroscopic images were saved. The images demonstrate an endoscope in the descending duodenum. The GI physician was unable to cannulate the common bile duct due to obstruction. Please correlate with the procedural report as needed.
--- NOTE | 2018-08-15 08:25 | Ultrasound Report ---
PROCEDURE: US ABDOMEN COMPLETE TECHNIQUE: Grayscale and color Doppler ultrasound evaluation of the abdomen HISTORY: jaundice COMPARISONS: CT 08/08/2018 FINDINGS: Intra and extrahepatic biliary ductal dilatation. Common duct measures approximately 15 mm in diamete r. No choledocholithiasis is identified. Liver size and contour are within normal limits. Multiple large anechoic cysts are present in the lef t greater than right hepatic lobes, better demonstrated on recent CT. Parenchymal echogenicity is oth erwise within normal limits. Distended gallbladder. Gallbladder wall thickness is approximately 1 mm. No pericholecystic edema or cholelithiasis identified. The spleen is sonographically unremarkable and measures up to 9.2 cm. The right kidney measures 12.2 cm and the left kidney measures 11.7 cm in length. No hydronephrosis o r echogenic shadowing foci to suggest nephrolithiasis. No abdominal ascites or free fluid in Morison' s pouch identified. Imaged portions of the aorta and inferior vena cava are unremarkable. The pancreas is not well visual ized due to overlying bowel gas. IMPRESSION: Dilated intra and extrahepatic biliary tree and distended gallbladder. No gallstones or choledocholit hiasis identified. This document is electronically signed by Reno Centeno MD., August 15 2018 08:22:25 AM ET
== END 2018-08-10 16:30 | disposition short-term general hospital (02) | DRG 446 ==
LOC: UNDOADMIN 12:22 → 2B-ACE 12:22
PROVIDERS: ADMIT Internal Medicine; ATTEND Internal Medicine
PROC: 0FJD8ZZ Inspection of Pancreatic Duct, Via Natural or Artificial Opening Endoscopic (ICD-10-PCS; principal; 2018-08-09)
PROC: BF181ZZ Fluoroscopy of Pancreatic Ducts using Low Osmolar Contrast (ICD-10-PCS; 2018-08-09)
DX: K83.1 Obstruction of bile duct (principal); N40.0 Benign prostatic hyperplasia without lower urinary tract symptoms; R74.0 Nonspecific elevation of levels of transaminase and lactic acid dehydrogenase [LDH]; K75.9 Inflammatory liver disease, unspecified; E78.2 Mixed hyperlipidemia; R93.2 Abnormal findings on diagnostic imaging of liver and biliary tract; Z79.899 Other long term (current) drug therapy; Z80.42 Family history of malignant neoplasm of prostate
CPT/HCPCS: 36415; 74177; 74328; 76700; 80053; 80061; 80074; 82247; 82248; 83690; 85007; 85025; 85610; 87116; 93005; 93010; G0378; A9270-GY; C1726; C1769; J1610; J1650; J1956; J2250; J2704; J7030; Q9967